=== PATIENT | female | born 1995 | race Caucasian/White ===

== ENCOUNTER 2019-02-03 16:48 | Emergency (ER) | payer MEDICAID ==
[~2019-02-03] VITALS: Ht 167.6 cm; Wt 74.8 kg
[2019-02-03 16:48] VITALS: BP_SYST 117
[2019-02-03 18:40] VITALS: BP_SYST 117
== END 2019-02-03 18:40 | disposition home or self-care (01) ==
LOC: SED 16:48
DX: J06.9 Acute upper respiratory infection, unspecified (principal); R42 Dizziness and giddiness; R03.0 Elevated blood-pressure reading, without diagnosis of hypertension; F17.200 Nicotine dependence, unspecified, uncomplicated
CPT/HCPCS: 71045; 81025; 99283

== ENCOUNTER 2021-07-19 17:00 | Emergency (ER) | payer MEDICAID, SELFPAY ==
[~2021-07-19] VITALS: Ht 167.6 cm; Wt 85.3 kg
[2021-07-19 17:06] VITALS: BP_SYST 111
--- NOTE | 2021-07-19 17:06 | NUR ---
Patient to ER TENT 1 to gown for evaluation. Side rails up.
--- NOTE | 2021-07-19 17:10 | NUR ---
PT CAME IN FROM HOME C/O FEVER, SOB, NASAL CONGESTION, RUNNY NOSE, SORE THROAT SINCE THURSDAY. PT IS BREATHING UNLABORED, EVEN, NO DISTRESS, AMBULATORY, AAOX4, V/S /STABLE
--- NOTE | 2021-07-19 18:00 | NUR ---
ER DR. BLOOD AT THE BEDSIDE EXAMINING PT
[2021-07-19] MEDS ORDERED: FLUT16SP16 NS (18:13)
[2021-07-19] MEDS ORDERED: DECADRON 4 MG TABLET PO ONE (18:15)
[2021-07-19] MEDS ORDERED: KETOROLAC TROMETHAMINE 30 MG VIAL IM ONE (18:15)
[2021-07-19] MEDS ORDERED: LIDOCAINE VISCOUS 2%, 15 ML UDC MM ONE (18:15)
[2021-07-19] MEDS ORDERED: LIDOCAINE VISCOUS 2%, 15 ML UDC ONE (18:23)
[2021-07-19 18:28] VITALS: BP_SYST 111
--- NOTE | 2021-07-19 18:32 | NUR ---
Patient given written and verbal discharge instructions and verbalizes understanding. ER MD discussed with patient the results and treatment provided. Patient in stable condition. ID arm band removed. Rx of FLONASE given. Patient educated on pain management and to follow up with PMD. Pain Scale 0/10. Opportunity for questions provided and answered. Medication side effect fact sheet provided.
== END 2021-07-19 18:37 | disposition home or self-care (01) ==
LOC: SED 17:00
DX: B34.9 Viral infection, unspecified (principal); Z79.899 Other long term (current) drug therapy; Z20.822 Contact with and (suspected) exposure to COVID-19
CPT/HCPCS: 96372; 99283; J1885; J2001; J8540; U0003; C9803